=== PATIENT | male | born 1995 | race American Indian/Alaskan Native ===

== ENCOUNTER 2020-05-08 19:20 | Emergency (ER) | payer OTHER ==
[2020-05-08 23:06] VITALS: BP 146/100
== END 2020-05-09 02:40 | disposition left against medical advice (07) ==
LOC: ED 19:20
DX: M25.571 Pain in right ankle and joints of right foot (principal); Z53.21 Procedure and treatment not carried out due to patient leaving prior to being seen by health care provider